=== PATIENT | male | born 1970 | race African-American/Black ===

== ENCOUNTER 2019-09-12 17:50 | Inpatient (IN) | payer MEDICAID ==
[~2019-09-12] VITALS: Ht 180.3 cm; Wt 79.2 kg
[2019-09-12] MEDS ORDERED: HALOPERIDOL 5 MG TABLET PO PRN (20:00)
[2019-09-12 21:15] VITALS: BP 135/84
[2019-09-12] MEDS ORDERED: INFLUENZA VIRUS VACCINE QVS 2019-20 (3YR+)/PF 60 MCG/0.5 ML SYRINGE IM ONE (21:15)
[2019-09-12] MEDS: LORazepam 2 MG TABLET PO PRN (21:24)
[2019-09-13 00:04] VITALS: BP 110/65
[2019-09-13 07:29] LABS: BASOPHILS % (AUTO) 1.4 % (0.0-2.0); EOSINOPHILS % (AUTO) 1.2 % (1.0-6.0); HEMATOCRIT 31.5 % (41-53); HEMOGLOBIN 10.9 g/dL (13.5-17.5); LYMPHOCYTES # (AUTO) 1.1 K/uL (1.0-4.8); LYMPHOCYTES % (AUTO) 13.3 % (22.0-44.0); MEAN CORPUSCULAR HEMOGLOBIN 33.2 pg (26.0-34.0); MEAN CORPUSCULAR HGB CONC 34.6 G/dL (31.0-37.0); MEAN CORPUSCULAR VOLUME 96 fL (80-100); MONOCYTES # (AUTO) 0.7 K/uL (0.1-1.0); MONOCYTES % (AUTO) 8.6 % (2.0-9.0); NEUTROPHILS # (AUTO) 6.4 K/uL (1.8-7.7); NEUTROPHILS % (AUTO) 75.5 % (40.0-70.0); PLATELET COUNT (AUTO) 378 K/uL (150-450); RED BLOOD CELL COUNT(AUTO) 3.28 MIL/uL (4.50-5.90); RED CELL DISTRIBUTION WIDTH 13.7 % (11.5-14.5)
[2019-09-13 07:49] LABS: ALANINE AMINOTRANSFERASE 47 U/L (12-78); ALKALINE PHOSPHATASE 63 U/L (46-116); ANION GAP 7 mmol/L (8-16); ASPARTATE AMINOTRANSFERASE 21 U/L (15-37); BILIRUBIN,TOTAL 0.3 mg/dL (0.1-1.0); CALCIUM, TOTAL 8.6 mg/dL (8.8-10.5); CARBON DIOXIDE 25 mmol/L (22-29); CHLORIDE 101 mmol/L (98-107); CHOL/HDL RATIO 2.4 (4.2-7.3); CHOLESTEROL 132 mg/dL (131-200); CREATININE 0.84 mg/dL (0.60-1.30); FREE T4 (FREE THYROXINE) 0.96 ng/dL (0.76-1.46); GLOMERULAR FILTR. RATE CALC > 60 mL/min (>60); GLUCOSE,RANDOM 79 mg/dL (70-110); HDL CHOLESTEROL 55 mg/dL (40-60); LDL CHOL (CALC.) 72 mg/dL (0-130); POTASSIUM 4.1 mmol/L (3.5-5.1); SODIUM SERUM 133 mmol/L (136-145); TOTAL PROTEIN, SERUM 6.4 g/dL (6.4-8.2); TRIGLYCERIDES 24 mg/dL (15-150); UREA NITROGEN, BLOOD 10 mg/dL (7-18)
[2019-09-13 07:58] LABS: HEMOGLOBIN A1C 4.9 % (4.5-6.2)
[2019-09-13 08:16] VITALS: BP 130/83
[2019-09-13] MEDS: BACITRACIN 28.4 GM OINTMENT TP SCH ×3 (08:42→18:37)
[2019-09-13] MEDS ORDERED: IBUPROFEN 400 MG TABLET PO PRN (12:30)
[2019-09-13] MEDS ORDERED: ACETAMINOPHEN 325 MG TABLET PO PRN (12:30)
[2019-09-13] MEDS ORDERED: CloNIDine HCL 0.1 MG TABLET PO PRN (12:30)
[2019-09-13] MEDS ORDERED: MAG HYDROX/AL HYDROX/SIMETH ES 30 ML SUSPENSION UDCUP PO PRN (12:30)
[2019-09-13] MEDS ORDERED: GuaiFENesin/D-METHORPHAN [SUGAR-FREE] 200-20MG/10 ML SYRUP UDCUP PO PRN (12:30)
[2019-09-13] MEDS ORDERED: ONDANSETRON HCL 4 MG TABLET PO PRN (12:30)
[2019-09-13] MEDS ORDERED: LOPERAMIDE HCL 2 MG CAPSULE PO PRN (12:30)
[2019-09-13] MEDS ORDERED: MAGNESIUM HYDROXIDE SUSPENSION 30 ML UDCUP PO PRN (12:30)
[2019-09-13] MEDS ORDERED: DOCUSATE SODIUM 100 MG CAPSULE PO PRN (12:30)
[2019-09-13] MEDS ORDERED: ALBUTEROL SULFATE HFA 90 MCG/PUFF 8 GM INHALER IH PRN (12:30)
[2019-09-13] MEDS ORDERED: PETROLATUM,WHITE 28 GM JELLY TP PRN (12:30)
[2019-09-13] MEDS: NICOTINE 14 MG/24 HOUR PATCH TD PRN (13:30)
[2019-09-13] MEDS: SERTRALINE HCL 50 MG TABLET PO SCH (13:31)
[2019-09-13] MEDS: CEPHALEXIN MONOHYDRATE 500 MG CAPSULE PO SCH ×2 (13:31→18:37)
[2019-09-13 13:36] VITALS: BP 125/80
[2019-09-13 16:07] VITALS: BP 140/87
[2019-09-13] MEDS: SULFAMETHOX/TRIMETH DS 800-160 MG/TABLET PO SCH (18:47)
[2019-09-13] MEDS: ZOLPIDEM TARTRATE 10 MG TABLET PO PRN (22:40)
[2019-09-14 01:03] VITALS: BP 140/90
[2019-09-14] MEDS: LORazepam 2 MG TABLET PO PRN (06:13)
[2019-09-14 08:27] VITALS: BP 118/77
[2019-09-14] MEDS: SERTRALINE HCL 50 MG TABLET PO SCH (08:35)
[2019-09-14] MEDS: CEPHALEXIN MONOHYDRATE 500 MG CAPSULE PO SCH ×3 (08:35→17:02)
[2019-09-14] MEDS: BACITRACIN 28.4 GM OINTMENT TP SCH ×2 (08:35→17:04)
[2019-09-14] MEDS: SULFAMETHOX/TRIMETH DS 800-160 MG/TABLET PO SCH ×2 (08:35→17:40)
[2019-09-14] MEDS: FERROUS SULFATE 325 MG EC TABLET PO SCH ×2 (12:40→17:01)
[2019-09-14] MEDS ORDERED: FUROSEMIDE 20 MG TABLET PO ONE (16:00)
[2019-09-14 16:12] VITALS: BP 126/69
[2019-09-15 00:08] VITALS: BP 129/81
[2019-09-15] MEDS: FERROUS SULFATE 325 MG EC TABLET PO SCH ×3 (06:45→16:39)
[2019-09-15] MEDS: SERTRALINE HCL 50 MG TABLET PO SCH (08:18)
[2019-09-15] MEDS: CEPHALEXIN MONOHYDRATE 500 MG CAPSULE PO SCH ×3 (08:18→16:39)
[2019-09-15] MEDS: BACITRACIN 28.4 GM OINTMENT TP SCH ×2 (08:18→16:39)
[2019-09-15] MEDS: SULFAMETHOX/TRIMETH DS 800-160 MG/TABLET PO SCH ×2 (08:18→16:39)
[2019-09-15 08:23] VITALS: BP 126/66
[2019-09-15] MEDS: NICOTINE 14 MG/24 HOUR PATCH TD PRN (15:58)
[2019-09-15 16:11] VITALS: BP 131/79
[2019-09-16] MEDS: ZOLPIDEM TARTRATE 10 MG TABLET PO PRN ×2 (01:35→22:21)
[2019-09-16 01:41] VITALS: BP 105/72
[2019-09-16] MEDS: FERROUS SULFATE 325 MG EC TABLET PO SCH ×3 (06:40→16:51)
[2019-09-16 07:35] LABS: ANION GAP 9 mmol/L (8-16); CALCIUM, TOTAL 9.5 mg/dL (8.8-10.5); CARBON DIOXIDE 25 mmol/L (22-29); CHLORIDE 100 mmol/L (98-107); CREATININE 0.91 mg/dL (0.60-1.30); GLOMERULAR FILTR. RATE CALC > 60 mL/min (>60); GLUCOSE,RANDOM 88 mg/dL (70-110); POTASSIUM 4.6 mmol/L (3.5-5.1); SODIUM SERUM 134 mmol/L (136-145); UREA NITROGEN, BLOOD 13 mg/dL (7-18)
[2019-09-16] MEDS: SULFAMETHOX/TRIMETH DS 800-160 MG/TABLET PO SCH ×2 (08:10→16:51)
[2019-09-16] MEDS: CEPHALEXIN MONOHYDRATE 500 MG CAPSULE PO SCH ×3 (08:10→16:51)
[2019-09-16] MEDS: SERTRALINE HCL 50 MG TABLET PO SCH (08:10)
[2019-09-16] MEDS: BACITRACIN 28.4 GM OINTMENT TP SCH ×2 (08:11→16:51)
[2019-09-16 08:15] VITALS: BP 119/69
[2019-09-16] MEDS: NICOTINE 14 MG/24 HOUR PATCH TD PRN (08:17)
[2019-09-16] MEDS: LORazepam 2 MG TABLET PO PRN (08:27)
[2019-09-16 16:00] VITALS: BP 118/68
[2019-09-17 05:17] VITALS: BP 110/72
[2019-09-17] MEDS: LORazepam 2 MG TABLET PO PRN (05:19)
[2019-09-17] MEDS: FERROUS SULFATE 325 MG EC TABLET PO SCH ×3 (06:44→16:33)
[2019-09-17 09:20] VITALS: BP 115/60
[2019-09-17] MEDS: SULFAMETHOX/TRIMETH DS 800-160 MG/TABLET PO SCH ×2 (09:52→16:33)
[2019-09-17] MEDS: SERTRALINE HCL 50 MG TABLET PO SCH (09:53)
[2019-09-17] MEDS: CEPHALEXIN MONOHYDRATE 500 MG CAPSULE PO SCH ×3 (09:53→16:33)
[2019-09-17] MEDS: BACITRACIN 28.4 GM OINTMENT TP SCH ×2 (09:54→16:34)
[2019-09-17 16:19] VITALS: BP 106/64
[2019-09-17] MEDS: TraZODone HCL 50 MG TABLET PO SCH (20:34)
[2019-09-18] MEDS: LORazepam 2 MG TABLET PO PRN ×2 (04:13→09:07)
[2019-09-18] MEDS: FERROUS SULFATE 325 MG EC TABLET PO SCH ×3 (07:02→16:55)
[2019-09-18 07:23] VITALS: BP 120/74
[2019-09-18 08:14] VITALS: BP 108/69
[2019-09-18] MEDS: SULFAMETHOX/TRIMETH DS 800-160 MG/TABLET PO SCH ×2 (08:35→16:54)
[2019-09-18] MEDS: SERTRALINE HCL 50 MG TABLET PO SCH (08:35)
[2019-09-18] MEDS: CEPHALEXIN MONOHYDRATE 500 MG CAPSULE PO SCH ×3 (08:35→16:55)
[2019-09-18] MEDS: BACITRACIN 28.4 GM OINTMENT TP SCH ×2 (08:36→16:55)
[2019-09-18] MEDS: NICOTINE 14 MG/24 HOUR PATCH TD PRN (09:08)
[2019-09-18 16:03] VITALS: BP 115/72
[2019-09-18] MEDS: TraZODone HCL 50 MG TABLET PO SCH (20:19)
[2019-09-19] MEDS: LORazepam 2 MG TABLET PO PRN (05:59)
[2019-09-19 06:06] VITALS: BP 116/68
[2019-09-19] MEDS: FERROUS SULFATE 325 MG EC TABLET PO SCH ×3 (06:41→17:13)
[2019-09-19 08:08] VITALS: BP 95/72
[2019-09-19] MEDS: CEPHALEXIN MONOHYDRATE 500 MG CAPSULE PO SCH ×3 (08:36→16:57)
[2019-09-19] MEDS: SERTRALINE HCL 50 MG TABLET PO SCH (08:36)
[2019-09-19] MEDS: SULFAMETHOX/TRIMETH DS 800-160 MG/TABLET PO SCH ×2 (08:36→16:56)
[2019-09-19] MEDS: BACITRACIN 28.4 GM OINTMENT TP SCH ×2 (08:38→16:57)
[2019-09-19 16:28] VITALS: BP 127/75
[2019-09-19] MEDS: TraZODone HCL 50 MG TABLET PO SCH (20:34)
[2019-09-20] MEDS: LORazepam 2 MG TABLET PO PRN ×2 (04:53→12:21)
[2019-09-20 04:56] VITALS: BP 113/60
[2019-09-20] MEDS: FERROUS SULFATE 325 MG EC TABLET PO SCH ×3 (06:47→16:44)
[2019-09-20 08:18] VITALS: BP 103/51
[2019-09-20] MEDS: SULFAMETHOX/TRIMETH DS 800-160 MG/TABLET PO SCH (08:22)
[2019-09-20] MEDS: CEPHALEXIN MONOHYDRATE 500 MG CAPSULE PO SCH (08:22)
[2019-09-20] MEDS: SERTRALINE HCL 50 MG TABLET PO SCH (08:22)
[2019-09-20] MEDS: BACITRACIN 28.4 GM OINTMENT TP SCH ×2 (08:22→16:44)
[2019-09-20] MEDS: NICOTINE 14 MG/24 HOUR PATCH TD PRN (10:56)
[2019-09-20 16:26] VITALS: BP 117/69
[2019-09-20] MEDS: TraZODone HCL 50 MG TABLET PO SCH (21:19)
[2019-09-21 00:40] VITALS: BP 107/66
[2019-09-21] MEDS: LORazepam 2 MG TABLET PO PRN ×3 (01:56→17:45)
[2019-09-21] MEDS: ZOLPIDEM TARTRATE 10 MG TABLET PO PRN (02:03)
[2019-09-21] MEDS: FERROUS SULFATE 325 MG EC TABLET PO SCH ×3 (06:46→17:46)
[2019-09-21 08:23] VITALS: BP 95/52
[2019-09-21] MEDS: BACITRACIN 28.4 GM OINTMENT TP SCH ×2 (08:54→17:46)
[2019-09-21] MEDS ORDERED: SERTRALINE HCL 100 MG TABLET PO SCH (09:00)
[2019-09-21 16:05] VITALS: BP 116/76
[2019-09-21] MEDS: TraZODone HCL 50 MG TABLET PO SCH (20:12)
[2019-09-21] MEDS ORDERED: TRAZ-252 PO (22:08)
[2019-09-21] MEDS ORDERED: FERR-89 PO (22:08)
[2019-09-21] MEDS ORDERED: SERT100T12 PO (22:08)
[2019-09-22] VITALS: BP 121/82
[2019-09-22] MEDS: ZOLPIDEM TARTRATE 10 MG TABLET PO PRN (00:04)
[2019-09-22] MEDS ORDERED: BACI30OI6 TP (05:55)
[2019-09-22] MEDS: FERROUS SULFATE 325 MG EC TABLET PO SCH (06:36)
[2019-09-22] MEDS: NICOTINE 14 MG/24 HOUR PATCH TD PRN (06:42)
== END 2019-09-22 07:21 | disposition home or self-care (01) | DRG 751 ==
LOC: B2S 20:00
PROVIDERS: ADMIT Psychiatry & Neurology Child & Adolescent Psychiatry; ATTEND Psychiatry & Neurology Child & Adolescent Psychiatry
DX: F33.2 Major depressive disorder, recurrent severe without psychotic features (principal); Z91.19 Patient's noncompliance with other medical treatment and regimen; D64.9 Anemia, unspecified; G89.29 Other chronic pain; F17.200 Nicotine dependence, unspecified, uncomplicated; M54.9 Dorsalgia, unspecified; S90.822A Blister (nonthermal), left foot, initial encounter; L03.119 Cellulitis of unspecified part of limb; Y92.89 Other specified places as the place of occurrence of the external cause; Y99.8 Other external cause status; Z59.0 Homelessness
CPT/HCPCS: 83036; 84439; 84443; 87081